=== PATIENT | female | born 1995 | race Caucasian/White ===

== ENCOUNTER 2020-03-18 13:20 | Observation (INO) | payer OTHER ==
[~2020-03-18] VITALS: Ht 160 cm; Wt 74.8 kg
== END 2020-03-18 15:30 | disposition home or self-care (01) ==
LOC: SPU 13:20
PROVIDERS: ADMIT Obstetrics & Gynecology; ATTEND Obstetrics & Gynecology
DX: O46.93 Antepartum hemorrhage, unspecified, third trimester (principal); Z3A.34 34 weeks gestation of pregnancy
CPT/HCPCS: 76815; 81002; G0378